=== PATIENT | female | born 1950 | race Caucasian/White ===

== ENCOUNTER 2016-11-02 13:58 | Emergency (ER) | payer MEDICAID, MEDICARE ==
[2016-11-02] MEDS ORDERED: Meclizine HCl 25 MG TAB ONE (21:57)
[2016-11-03] MEDS ORDERED: ONDANSETRON ODT 4 MG TAB ONE (00:41)
== END 2016-11-03 00:52 | disposition home or self-care (01) ==
LOC: ER 13:58
DX: R42 Dizziness and giddiness (principal)
CPT/HCPCS: 70450; 93005

== ENCOUNTER 2016-11-08 05:11 | Emergency (ER) | payer MEDICARE | END 2016-11-08 07:00 | disposition home or self-care (01) | LOC: ER 05:11 | CPT/HCPCS: 70450; 72170; 72220 ==